=== PATIENT | male | born 1970 | race Two or more races ===

== ENCOUNTER 2018-02-10 06:25 | Emergency (ER) | payer OTHER ==
[2018-02-10 06:38] VITALS: BP 138/100; PULSE 86; TEMP 98.6; BMI 34.7
--- NOTE | 2018-02-10 07:14 | PDOC ---
History of Present Illness - General Chief Complaint: Redness To Affected Area Stated Complaint: PENIS REDNESS Time Seen by Provider: 02/10/18 07:12 History Source: Patient Exam Limitations: No Limitations - History of Present Illness Initial Comments: 02/10/18 07:13 Mr Beyer presents to the ER with a complaint of penile erythema and swelling He is an uncircumcised male, states that foreskin retracted and he was unable to reduce it at approximately 5:30 this morning (+) severe pain No prior episodes like this No discharge PMH: denies PSH: denies Meds: denies ALL: NKDA Social: denies drug or cigarette use FH: Not applicable GENERAL/CONSTITUTIONAL: No: fever, chills, weakness, loss of appetite. CARDIOVASCULAR: No: chest pain, lightheadedness, RESPIRATORY: No: cough, shortness of breath GASTROINTESTINAL: No: nausea, vomiting, diarrhea, abdominal pain GENITOURINARY: Yes: penile swelling and erythema No: dysuria, hematuria MUSCULOSKELETAL: No: back pain SKIN: Yes: penile erythema No: lesions, pallor, rash or easy bruising. NEUROLOGIC: No: headache, vertigo, paresthesias, weakness Physical Exam GENERAL: The patient is in no acute distress. HEAD: Normal EYES: PERRLA, EOMI, sclera anicteric, conjunctiva clear. ENT: Ears normal, nares patent, oropharynx clear without exudates. Moist mucous membranes. NECK: Normal range of motion LUNGS: Breath sounds equal, clear to auscultation bilaterally. No wheezes, and no crackles. HEART:Regular rate and rhythm, normal S1 and S2 without murmur, rub or gallop. ABDOMEN: Soft, nontender, normoactive bowel sounds. No guarding, no rebound. UROLOGY: foreskin retracted, glans penis swollen, erythematous, excoriated skin noted on glans penis EXTREMITIES: Normal range of motion NEUROLOGICAL: Cranial nerves II through XII grossly intact. Normal speech. No focal neurological deficits. MUSCULOSKELETAL: Back non-tender to palpation SKIN: please see above 02/10/18 07:36 02/10/18 07:41 Past History - Past Medical History Allergies/Adverse Reactions: Allergies Allergy/AdvReac Type Severity Reaction Status Date / Time No Known Allergies Allergy Verified 02/10/18 06:27 Home Medications: Ambulatory Orders NK [No Known Home Medication] 02/10/18 COPD: No HTN: Yes (NOT ON MEDICINE) - Suicide/Smoking/Psychosocial Hx Smoking History: Never smoked Hx Alcohol Use: No Drug/Substance Use Hx: No *Physical Exam - Vital Signs Last Vital Signs Temp Pulse Resp BP Pulse Ox 98.6 F 86 16 138/100 95 02/10/18 06:26 02/10/18 06:26 02/10/18 06:26 02/10/18 06:26 02/10/18 06:26 Medical Decision Making - Critical Care Time Total Critical Care Time (minutes): 35 Critical Care Statement: The care of this patient involved high complexity decision making to prevent further life threatening deterioration of the patient 's condition and/or to evaluate & treat vital organ system(s) failure or risk of failure. - Medical Decision Making 02/10/18 07:20 Pt has paraphimosis Given percocet EMLA applied Compression attempted Unable to manually reduce 02/10/18 07:[address] De La Cruz (gu aqu[place] ammonia operator) Compression continues EMLA applied 02/10/18 08:13 Reduction attempted again Swelling much improved Reduction attempted again there is a tight band noted which will not permit reduction Clinical Impression: paraphimosis, initial presentation 02/10/18 08:[address] De La Cruz States he will be scrubbed in the OR, pt should be transferred 02/10/18 08:[address] Diaz Being covered by Dr. Rodríguez 02/10/18 08:50 2nd call placed to Dr Allen 3rd attempt made to reduce Unsuccessful Pt is attempting to reduce on his own If not successful will transfer to [facility] 02/10/18 09:09 Pt was able to reduce paraphimosis Upon reassessment, indeed, foreskin has been reduced completely back to its normal state He states his pain has resolved Will discharge to home Will ask pt to follow up with Urology today Clinical impression: Paraphimosis, initial presentation 02/10/18 09:[address] Nyla Nava 02/10/18 12:19 [address]ceived call [address]do from Dr Nava he will contact this patient to arrange Outpatient eval and Circumcision 02/10/18 16:44 Case reviewed with Office of Sr Nava They are contacting this patient for follow up *DC/Admit/Observation/Transfer Diagnosis at time of Disposition: Paraphimosis - Discharge Dispostion Disposition: HOME Condition at time of disposition: Stable Decision to Admit order: No - Referrals Referrals: Janet Nava MD [Staff Physician] - - Patient Instructions Printed Discharge Instructions: DI for Paraphimosis Additional Instructions: Mr Beyer Chitra por venir a la saba de emergencia hoy Por favor, asegrese de controlar la retraccin del prepucio, hinchazn del pene Si nota hinchazn y dolor, regrese a la saba de emergencias para alberto nueva evaluacin [employer] Por favor, jacki un seguimiento con el urlogo saul pronto alec sea posible para 1 ) re-evaluacin y 2) posible planificacin quirrgica Thank you for coming in to the ER today Please be sure to monitor for retraction of the foreskin, swelling of the penis If you notice swelling and pain, please return to the ER for re evaluation IMMEDIATELY Please follow up with the Urologist As soon as possibly for 1) re assessment and 2) possible surgical planning Print Language: PANAMANIAN - Post Discharge Activity Forms/Work/School Notes: Back to Work
[2018-02-10] MEDS ORDERED: LIDOCAINE VISCOUS 2% ORAL/TOP 100 ML BOTTLE MM ONE (07:35)
[2018-02-10] MEDS ORDERED: LIDOCAINE 2.5%/PRILOCAINE 2.5% (5 Gram/TUBE) TP ONE ×2 (07:39→07:40)
== END 2018-02-10 09:47 | disposition home or self-care (01) ==
LOC: FER 06:25
DX: N47.2 Paraphimosis (principal)
CPT/HCPCS: 99281-25

== ENCOUNTER 2021-08-20 10:24 | Emergency (ER) | payer OTHER ==
[2021-08-20] MEDS ORDERED: LORazepam 2 MG/ML SDV VIAL ONE ×2 (10:34→10:35)
[2021-08-20] MEDS ORDERED: levETIRAcetam 500 MG/5 ML INJECTION VIAL IVPB ONE ×2 (10:42→10:55)
[2021-08-20] MEDS ORDERED: LABETALOL HCL 5 MG/1 ML (100MG/20 ML VIAL) ONE (10:42)
[2021-08-20] MEDS ORDERED: RAPID SEQUENCE INTUBATION KIT NR ONE ×2 (10:48→10:52)
[2021-08-20] MEDS ORDERED: TRANEXAMIC ACID 1000 MG/10 ML VIAL IVPUSH ONE (10:54)
[2021-08-20] MEDS ORDERED: PROPOFOL 1,000,000 MCG/100 ML VIAL ONE (10:54)
[2021-08-20] MEDS ORDERED: LABETALOL HCL 5 MG/1 ML (100MG/20 ML VIAL) IVPUSH ONE (10:55)
[2021-08-20] MEDS ORDERED: ROCURONIUM BROMIDE 50 MG/5 ML VIAL IV ONE (10:55)
[2021-08-20] MEDS ORDERED: ETOMIDATE 40 MG/20 ML VIAL IVPUSH ONE (10:55)
[2021-08-20] MEDS ORDERED: PROPOFOL 1,000,000 MCG/100 ML VIAL IVPB SCH (11:00)
[2021-08-20 11:22] VITALS: BMI 30.7
[2021-08-20 11:22] LABS: BASO % 0.5 % (0-2.0); EOS % 0.9 % (0-4.5); HEMATOCRIT 45.2 % (35.4-49); HEMOGLOBIN 14.6 GM/dL (11.7-16.9); LYMPH % 31.6 % (8-40); MCH 29.5 pg (25.7-33.7); MCHC 32.3 g/dl (32.0-35.9); MEAN CELL VOLUME 91.1 fl (80-96); MEAN PLT VOLUME 11.4 fl (7.5-11.1); MONO % 6.2 % (3.8-10.2); NEUT % 60.8 % (42.8-82.8); PLATELET COUNT 236 10^3/uL (134-434); RBC 4.96 M/mm3 (4.00-5.60); RDW 12.5 % (11.9-15.9)
[2021-08-20] MEDS ORDERED: TRANEXAMIC ACID 1000 MG/10 ML VIAL ONE (11:24)
[2021-08-20 11:30] LABS: INR 0.92 (0.83-1.09); PROTHROMBIN TIME (PATIENT) 10.7 SEC (9.7-13.0)
[2021-08-20 11:33] LABS: ACTIVATED PTT 26.7 SECONDS (25.2-36.5)
[2021-08-20 11:53] VITALS: TEMP 98.9
[2021-08-20 11:55] LABS: CALCIUM 8.5 mg/dL (8.5-10.1)
[2021-08-20 11:56] LABS: ALBUMIN 2.9 g/dl (3.4-5.0); BLOOD UREA NITROGEN 27.6 mg/dL (7-18)
[2021-08-20 11:59] LABS: CREATININE 1.4 mg/dL (0.55-1.3)
[2021-08-20 12:00] LABS: BILIRUBIN,TOTAL 0.4 mg/dL (0.2-1)
[2021-08-20 12:09] VITALS: BP 168/100; PULSE 78
== END 2021-08-20 12:20 | disposition short-term general hospital (02) ==
LOC: JER 10:24
PROC: 3E033GC Introduction of Other Therapeutic Substance into Peripheral Vein, Percutaneous Approach (ICD-10-PCS; principal; 2021-08-20)
DX: I61.1 Nontraumatic intracerebral hemorrhage in hemisphere, cortical (principal)
CPT/HCPCS: 36415; 70450-TC; 71045-TC-FY; 80053; 80061; 82550; 82553; 82962; 83036; 84484; 85025; 85610; 85730; 86850; 86900; 86901; 93005; 93010; 99291; 99292; C9803; U0003; U0005